=== PATIENT | female | born 1970 | race African-American/Black ===

== ENCOUNTER → 2016-08-11 | Outpatient (CLI) | payer BC ==
--- NOTE | ~2016-08-11 | MY29 ---
[facility] A Service of [facility] RADIOLOGY TEXT RESULTS PATIENT: RAMON WICK LOCATION: [facility] : 68 UNIT #: [id number] AGE: [address]: Nelly Marshall MD SEX: F ORDER DR: [id number] [facility] [address]. [place], [place] [address] [id number] O MR#: [id number] Acc #: [id number] NAME: RAMON WICK. : 1970 SEX: F STUDY DATE/TIME: 08/11/2016 10:53 UNIT: [facility] ROOM: STUDY DESCRIPTION: MY [place] SCREENING W/ CAD BILAT Attending Physician: Nelly Marshall M.D. Ordering Physician: Nelly Marshall M.D. Primary Care Physician: Nelly Marshall M.D. MEDICAL IMAGING REPORT This report is preliminary unless electronic signature is present EXAM Digital screening mammogram 08/10/2016 [facility] HISTORY 46-year-old woman positive family history, grandmother age 40. Previous right breast trauma with subsequent surgery. Annual screen. COMPARISON 02/22/2006, 08/01/2009, 03/28/2015 with followup right diagnostic mammogram 05/09/2015. EXAM Digital imaging of each breast was completed utilizing screening protocol. Skin marker was placed upper outer quadrant right breast. Review includes FDA-approved CAD device. Breast parenchyma is fatty replaced and stable. There is no suspicious breast mass. There are no interval occurring microcalcifications and no suspicious architectural deformity. IMPRESSION Negative mammogram. Annual screening recommended. Patient's over the age of 40 are entered into a reminder system with target due date for the next mammogram. A result letter will be sent to the patient. BIRADS: 1 Negative Dictated by... Dion Ellis M.D. THIS IS AN ELECTRONICALLY VERIFIED REPORT Dion Ellis M.D. at 08/11/2016 3:[address] [facility] A Service of [facility] RADIOLOGY TEXT RESULTS PATIENT: RAMON WICK LOCATION: [facility] #: [id number] : [birth year] UNIT #: [id number] AGE: [address]: Nelly Marshall MD SEX: F ORDER DR: EITAN/gonzales TD: 08/11/2016 13:41 JOB #: [id number] MEDICAL IMAGING REPORT Page 1 of 1 COPY
== END | disposition home or self-care (01) ==
LOC: CWCC 07-12 11:45
DX: Z12.31 Encounter for screening mammogram for malignant neoplasm of breast (principal); Z80.3 Family history of malignant neoplasm of breast; Z98.890 Other specified postprocedural states
CPT/HCPCS: G0202